=== PATIENT | female | born 1980 | race Two or more races ===

== ENCOUNTER 2016-04-21 13:21 | Outpatient (CLI) | payer MEDICAID | END 2016-04-21 14:38 | disposition home or self-care (01) | LOC: FBC 13:21 → FBCOUT 13:21 | PROVIDERS: ATTEND Family Medicine | DX: O76 Abnormality in fetal heart rate and rhythm complicating labor and delivery (principal); O40.9XX0 Polyhydramnios, unspecified trimester, not applicable or unspecified; O24.419 Gestational diabetes mellitus in pregnancy, unspecified control; Z3A.00 Weeks of gestation of pregnancy not specified ==

== ENCOUNTER 2016-05-09 06:56 | Inpatient (IN) | payer MEDICAID ==
[2016-05-09] MEDS ORDERED: TERBUTALINE SULFATE 1 MG/ML VIAL IV ONE (07:23)
[2016-05-09] MEDS ORDERED: IV START KIT ONE (07:31)
[2016-05-09] MEDS ORDERED: LACTATED RINGERS 1,000 ML ONE (07:31)
[2016-05-09 07:57] VITALS: BMI 34.5
[2016-05-09] MEDS: LACTATED RINGERS 1,000 ML IV SCH ×2 (08:05→19:21)
[2016-05-09 08:16] LABS: HEMATOCRIT 33.5 % (37.0-47.0); HEMOGLOBIN 11.7 gm/l (12.0-16.0); MEAN CELL VOLUME 87.2 fl (81.0-99.0); MEAN CORPUSCULAR HEMOGLOBIN 30.5 pg (27.0-31.0); MEAN CORPUSCULAR HGB CONC 34.9 g/dl (33.0-37.0)
[2016-05-09] MEDS ORDERED: TERBUTALINE SULFATE 1 MG/ML VIAL SUB-Q ONE (09:21)
[2016-05-09] MEDS ORDERED: DINOPROSTONE 10 MG SUP VG ONE (09:55)
--- NOTE | 2016-05-09 10:53 | PCMAN ---
OB Admission Note - History : 3 Term: 2 : 0 Abortions (S&E): 0 Livin EDC:: 05/16/16 Gestational Age (weeks): 39 Days (#/7): 0 Admit Cervical Dilation:: 0 Admit Cervical Effacement (%):: 25 Admit Station:: -3 Admit Presentaton:: breech Membrane Status: Intact Contractions: No Heart Rate:: 150 Status:: cat 1 EFW:: 3800gm Summary of Course:: Pt. here for version and IOL if successful. Labs reviewed. WNL except for GBS+ , elevated 1 hour GTT and diagnosis of GDM. PMH: mild asthma, seasonal allergies. LGA. - Labs Blood Type: O (+) positive Hct/Hgb:: 14 Rubella Status: Immune GBS Status: Positive Abnormal Labs: Other (3 hour gtt elevated) - Review of Systems Good FM, no lof or vb. No uc's. No vis changes, ruq pain, new swelling, jacobs. BS have been wnl - Physical Exam General: Afebrile, No Acute Distress Psych/Mental Status: Mood/Affect Appropriate, No Bonding Well Lungs: Clear to Auscultation Bilaterally Cardiovascular: Regular Rate and Rhythm, No Murmur Abdomen: Normal Bowel Sounds Genitourinary: Normal Female Genitalia Extremities: No Edema Skin: Warm, Dry, No Rash - Problems (1) Breech malpresentation successfully converted to cephalic presentation Status: Acute Code: O32.1IN3Digsdqfknf/Plan: Pt. presented for ext cephal version and possible IOL. Had successful version to cephalic presentation. (2) Gestational diabetes mellitus, class A1 Status: Acute Code: O24.410Assessment/Plan: Good control. No meds. IOL at 39 weeks. (3) Obesity Status: Acute Code: E66.9Assessment/Plan: Healthy diet and exercise started with onset of GDM. Will reinforce pp as well. (4) Positive GBS test Status: Acute Code: B95.1Assessment/Plan: Will need abx. (5) Elective induction of labor planned Status: Acute Code: [id number]/Plan: Planned iol secondary to GDM and h/o LGA. Had successful ext ceph version this am. Cervix is not favorable. Will start with cervidil. Discussed with patient and reason, PARQ's of IOL. Risks including but not limited to failed induction, need for c section, risks of oxytocin and rupture of uterus discussed. Questions were answered. Pt. and agree with IOL. Pt will breast feed. Peds at [facility] GBS-tx per protocol.a status: cephalic and cat 1. Pain: pt. wants epidural. BC: OCP's or Liletta. Tdap given 03/15.
[2016-05-09] MEDS ORDERED: LIDOCAINE Viscous 2% 15 ML UDCUP ONE (11:48)
[2016-05-09] MEDS ORDERED: OXYTOCIN 10 UNITS/ML VIAL ONE (11:48)
[2016-05-09] MEDS ORDERED: MINERAL OIL 25 ML BOT ONE (11:48)
[2016-05-09] MEDS ORDERED: LIDOCAINE 1% (PRES FREE) 30 ML VIAL ONE (11:48)
[2016-05-09] MEDS ORDERED: PUMP TUBING ONE (11:48)
[2016-05-09] MEDS ORDERED: OXYTOCIN IN LR 500 ML IV ONE (11:49)
[2016-05-09] MEDS ORDERED: PENICILLIN G POTASSIUM 5 MMU in NS 0.9% (MINI-BAG PLUS) 100 ML IV ONE ×2 (12:15→20:00)
[2016-05-09] MEDS ORDERED: PENICILLIN G 3 MIL UNIT PREMIX 3 MMU in Premix (D5W) 50 ml 1 EACH IV SCH (16:15)
--- NOTE | 2016-05-09 19:39 | PDOC36 ---
Provider Note Subject: Doing well. VSSAF. Contractions about every 5-6. Mild, 4/10 but increasing in discomfort. US confirms vertex presentation. Will start GBS prophy given multip and now more painful. Pt. is sure that she wants an epidural. Cat 1 FHT 's. Continue with cervidil.
[2016-05-09] MEDS ORDERED: NS 0.9% (MINI-BAG PLUS) 100 ML IV ONE (19:58)
[2016-05-09] MEDS ORDERED: PENICILLIN G POTASSIUM 5 MMU VIAL ONE (19:58)
[2016-05-09] MEDS ORDERED: CALCIUM CARBONATE 500 MG TAB.CHEW PO PRN (20:26)
[2016-05-10] MEDS ORDERED: PENICILLIN G 3 MIL UNIT PREMIX 50 ML IV ONE ×6 (00:06→21:29)
[2016-05-10] MEDS ORDERED: OXYTOCIN IN LR 500 ML IV PRN (00:24)
--- NOTE | 2016-05-10 00:24 | PDOC36 ---
Provider Note Subject: Doing well. Cervidil removed, cervix unchanged per RN. Cat 1 FHT and VSSaf. UC's Q 3-4 min and becoming more painful. Will monitor for short time and start pit if uc's stop to maintain uc's every 4-5 min. Pt. and updated , questions answered.
[2016-05-10] MEDS: LACTATED RINGERS 1,000 ML IV SCH ×7 (00:26→21:22)
[2016-05-10] MEDS: PENICILLIN G 3 MIL UNIT PREMIX 3 MMU in Premix (D5W) 50 ml 1 EACH IV SCH ×7 (00:27→21:35)
--- NOTE | 2016-05-10 07:16 | PDOC36 ---
Provider Note Subject: Late entry: Pt presented to [facility] 05/09/16 for ext cephalic version as she was in transverse/breech presentation and wanted IOL for GDM and h/o LGA. Procedure: External Cephalic Version Provider: Alejandro Indications: Breech, adequate fluid, term IUP. EFW by previous US was 4 kg. US: Prior to procedure, confirmed ant grade 3 placenta, baby in oblique position with buttocks in LLQ and head in RUQ. Meds: Terbutaline Sub-Q prior to procedure. Consents: Verbal and written informed consents were obtained. PARQ's were discussed, including but not limited to bleeding, abruption, SROM, bradycardia and need for immediate c section. Time out was held. Procedure: Category 1 FHT was obtained prior to procedure. US confirmed position, fluid, placental position. Pt. given sub-q terbutaline. Gel placed on abdomen then gentle pressure applied to lower pelvis to move buttocks/ pelvis into the LUQ of mother and simultaneously pressure was applied on the head which was in the RUQ. The baby easily moved into cephalic presentation. US confirmed vertex and heart rate was present and in the 140's. Pt. tolerated the procedure well and was happy with the outcome. IOL to begin.
[2016-05-10] MEDS ORDERED: FENTANYL 100 MCG/2 ML VIAL IV PRN (10:19)
--- NOTE | 2016-05-10 10:34 | PDOC36 ---
Provider Note Subject: MD Interval Note Note: Patient had breakfast and showered. Not feeling contractions. SVE internal os 1/ thick/hi (ballotable), but feels vertex. Discussed pain control options. Discussed starting pitocin. Still having contractions Q 2-6 mins. FHT: 150, moderate variability with long accels, no decels TOCO: Q 6 - 7 mins A/P: 35 yo at 39.1 wks, GDM, LGA, polyhydramnios, GBS pos - will start pitocin, cervix very soft. - once more well applied, consider AROM - has now had 4 doses of PCN
[2016-05-10] MEDS ORDERED: EPIDURAL PUMP SET ONE (17:43)
[2016-05-10] MEDS ORDERED: FENTANYL/ROPIVACAINE EPIDURAL 250 ML EP ONE (17:44)
[2016-05-10] MEDS ORDERED: ROPIVACAINE 0.5% 30 ML VIAL ONE (17:58)
[2016-05-10] MEDS ORDERED: EPIDURAL PROCEDURE TRAY ONE (17:58)
--- NOTE | 2016-05-10 18:11 | PDOC36 ---
Provider Note Subject: MD Interval Note Note: Called by RN, patient c/o severe back pain and requesting epidural. SVE /-1 per RN. SROM at last cervical exam around 1510, clear. Afebrile, VSS. PCN coverage sufficient for GBS. On Pit at 19. FHT: Category 1, 140, moderate variability, accels present, no decels TOCO: Q2.5-3 mins. A/P: 35 yo at 39 1/7 wks, IOL for GDM, polyhydramnios, LGA - epidural ordered - expectant management
[2016-05-10] MEDS ORDERED: ONDANSETRON 4 MG/2ML 2 ML VIAL IV PRN (18:28)
[2016-05-10] MEDS ORDERED: NALBUPHINE HCL 20 MG/ML AMP IV PRN (18:28)
[2016-05-10] MEDS ORDERED: DIPHENHYDRAMINE HCL 50 MG/1 ML VIAL IV PRN (18:28)
[2016-05-10] MEDS ORDERED: SODIUM CHLORIDE 0.9% 500 ML IV PRN (18:28)
[2016-05-10] MEDS ORDERED: FENTANYL/ROPIVACAINE EPIDURAL 250 ML EP SCH (18:28)
[2016-05-10] MEDS ORDERED: LACTATED RINGERS 500 ML IV PRN (18:28)
[2016-05-10] MEDS ORDERED: EPHEDRINE SULFATE 50 MG/ML 1ML VIAL IV PRN (18:28)
[2016-05-10] MEDS ORDERED: METOCLOPRAMIDE HCL 5 MG/ML 2ML VIAL IV PRN (18:28)
[2016-05-10] MEDS ORDERED: NALOXONE HCL 0.4 MG/ML VIAL IV PRN (18:28)
[2016-05-10] MEDS ORDERED: MINERAL OIL 25 ML BOT TP ONE (21:03)
[2016-05-11] MEDS ORDERED: OXYTOCIN IN LR 500 ML IV ONE (00:25)
[2016-05-11] MEDS: LACTATED RINGERS 1,000 ML IV SCH ×3 (00:26→00:49)
[2016-05-11] MEDS: PENICILLIN G 3 MIL UNIT PREMIX 3 MMU in Premix (D5W) 50 ml 1 EACH IV SCH (00:26)
--- NOTE | 2016-05-11 00:39 | PDOC36 ---
Provider Note Subject: MD Interval Note Note: Attempted to push with patient when she was 8-9 cm due to very stretchy multip cervix and repetitive variable decels that resolved with positioning. Patient pushed effectively but had a reducible anterior lip that persisted between contractions. Decision was made to stop pushing and allow her to labor down further. She was noted to be complete by RN around 2315. They began pushing around 2345. Pit at 19, s/p 5 doses of PCN FHT: 135, moderate, accels present, variable decels TOCO: Q2 mins A/P: 35 yo at 39 2/7 wks, IOL for GDM, polyhydramnios. s/p ECV for breech - expectant management - PCN coverage for GBS sufficient
[2016-05-11] MEDS ORDERED: DOCUSATE SODIUM 100 MG CAPSULE PO PRN (00:40)
[2016-05-11] MEDS ORDERED: LANOLIN 50 APPLIC/7G TUBE TP PRN (00:40)
[2016-05-11] MEDS ORDERED: BENZOCAINE/MENTHOL 60 APPLIC/BOT TP PRN (00:40)
--- NOTE | 2016-05-11 00:46 | PCMDEL ---
Delivery Note - Labor 1st stage (hr/min):: 7 hrs 49 mins 2nd stage (hr/min):: 1 hr 18 min 3rd stage (hr/min):: 7 min Total (hr/min):: 9 hrs 7 min Pushed (hr/min):: 30 mins - Delivery Delivery (Date): 05/11/16 Delivery (Time): 00:20 Gender: Female Presentation: Cephalic Position: OA Umbilical Cord: 3 Vessel Delayed Cord Clamping:: < 1-2 min 1 Minute Total: 9 5 Minute Total: 9 Placenta:: 00:27 EBL:: 200 mL Perineum:: intact Suture:: none Anesthesia/Meds:: epidural Length ROM:: 9 hrs 7 min Comments:: of vigorous NB girl, tight shoulders, did not require any special maneuvers , apgars 9/9. Infant handed to mom, cord clamped and cut after > 1 min delay. Cord blood obtained. Placenta delivered and grossly normal. Pitocin used for active management of 3rd stage of labor. QBL 200 mL. No lacerations. Clavicles examined on and found to be intact.
[2016-05-11] MEDS: IBUPROFEN 800 MG TABLET PO PRN ×4 (01:50→22:29)
[2016-05-11] MEDS: HYDROCODONE/ACETAMINOPHEN 5/325MG TABLET PO PRN ×2 (11:22→20:31)
[2016-05-12] MEDS ORDERED: CALCIUM CARBONATE 500 MG TAB.CHEW PO PRN (02:00)
[2016-05-12] MEDS: HYDROCODONE/ACETAMINOPHEN 5/325MG TABLET PO PRN (05:35)
[2016-05-12] MEDS: IBUPROFEN 800 MG TABLET PO PRN (05:35)
[2016-05-12 07:00] LABS: HEMOGLOBIN 9.3 gm/l (12.0-16.0)
[2016-05-12 08:32] VITALS: BP 109/62
--- NOTE | 2016-05-12 09:22 | PDOC39B ---
Hospital Course: ADMIT DATE: 05/09/16 DISCHARGE DATE: 05/12/16 ADMISSION DIAGNOSES: Intrauterine at term, Breech Presentation, Gestational Diabetes, Obesity PROCEDURES: External Cephalic Version HISTORY OF PRESENT ILLNESS: 35 year old G3 T2 L2 at 39 weeks 2 days presented for induction of labor due to Gestational Diabetes. Pt underwent a successful external cephalic version and an induction of labor was started. HOSPITAL COURSE: The patient had a normal vaginal delivery on 05/11/16. By day of discharge the patient is ambulating, eating, voiding, and passing flatus without difficulty. Pain is controlled and lochia is appropriate. She is . - Physical Exam Vital Signs: Temp Pulse Resp BP Pulse Ox 97.8 F 75 18 109/62 05/12/16 08:29 05/12/16 08:29 05/12/16 02:44 05/12/16 08:29 General: Afebrile Psych/Mental Status: Mood/Affect Appropriate, Judgment/Insight Intact Neurological: Grossly Intact, Alert HEENT: Atraumatic, EOMI Lungs: Clear to Auscultation Bilaterally, Normal Air Movement Cardiovascular: Regular Rate and Rhythm, Normal S1, Normal S2 Breast: Soft, Skin intact Fundus: Firm, Midline, Below Umbilicus Extremities: No Edema - Discharge Diagnosis (1) Gestational diabetes mellitus, class A1 Status: AcuteAssessment/Plan: Good control. No meds. s/p IOL at 39 weeks. (2) Normal vaginal delivery Status: AcuteAssessment/Plan: PPD#1, doing well meeting pp milestones without difficulty Stable for dc home (3) Term delivered vaginally, current hospitalization Status: Acute (4) Positive GBS test Status: AcuteAssessment/Plan: rec'd adequate abx - Discharge Plan Condition: Stable Disposition: Home Prescriptions: Docusate Sodium [COLACE 100 MG CAPSULE (SHF)] 100 mg PO DAILY PRN #60 PRN Reason: Comfort Ibuprofen [IBUPROFEN 800 MG TABLET (SHF)] 800 mg PO Q8H PRN #100 PRN Reason: Pain (Mild) Follow-Up: Naima Regan PA-C [Physician [employer] Salesperson [employer]] - In 6 weeks
[2016-05-12] MEDS ORDERED: FERROUS SULFATE (65 Fe) 325 MG TABLET PO SCH (21:00)
== END 2016-05-12 13:29 | disposition home or self-care (01) | DRG 775 ==
LOC: FBC 06:56 → EDSTATUS 05-16 06:55
PROVIDERS: ADMIT Family Medicine; ATTEND Family Medicine
PROC: 10S0XZZ Reposition Products of Conception, External Approach (ICD-10-PCS; 2016-05-09)
PROC: 3E0P7GC Introduction of Other Therapeutic Substance into Female Reproductive, Via Natural or Artificial Opening (ICD-10-PCS; 2016-05-09)
PROC: 10E0XZZ Delivery of Products of Conception, External Approach (ICD-10-PCS; principal; 2016-05-11)
DX: O32.1XX0 Maternal care for breech presentation, not applicable or unspecified (principal); O24.420 Gestational diabetes mellitus in childbirth, diet controlled; Z3A.39 39 weeks gestation of pregnancy; Z37.0 Single live birth; O99.214 Obesity complicating childbirth; E66.9 Obesity, unspecified; O99.824 Streptococcus B carrier state complicating childbirth